=== PATIENT | male | born 1975 | race Caucasian/White ===

== ENCOUNTER 2016-09-02 09:34 | Emergency (ER) | payer OTHER ==
[2016-09-02 11:55] LABS: HEMOGLOBIN 16.6 gm/dl (14.0-17.5); RED BLOOD COUNT 5.49 M/UL (4.20-5.50); WHITE BLOOD COUNT 9.1 K/UL (4.5-11.0)
[2016-09-02 12:12] LABS: BUN/CREATININE RATIO 18 (0-10)
== END 2016-09-02 14:35 | disposition home or self-care (01) ==
LOC: ER1 09:34
PROVIDERS: Physician Assistant
DX: L03.113 Cellulitis of right upper limb (principal)
CPT/HCPCS: 36415; 73130; 80053; 83605; 85025; 86140; 87040; 96365; 96375; 99283; J0690; J1885; J7050

== ENCOUNTER → 2021-08-27 | Outpatient (CLI) | payer OTHER ==
[~2021-08-27] MED LIST: FLOMAX 0.4 MG0.4 MG PO; TORADOL 10 MG T10 MG PO
== END ==
LOC: EXRD 14:26
DX: I99.8 Other disorder of circulatory system (principal)
CPT/HCPCS: 93926

== ENCOUNTER → 2021-09-17 | Outpatient (CLI) | payer OTHER | LOC: US 09:45 | DX: R10.31 Right lower quadrant pain (principal) | CPT/HCPCS: 76700 ==